=== PATIENT | female | born 1975 | race Caucasian/White ===

== ENCOUNTER 2018-01-02 19:41 | Emergency (ER) | payer BC ==
[~2018-01-02] VITALS: Ht 157.5 cm; Wt 68.0 kg
[2018-01-02 20:08] VITALS: BP_SYST 153
[2018-01-02] MEDS ORDERED: LIDOCAINE 1%, 20 ML MDV 20 ML ONE (21:15)
[2018-01-02] MEDS ORDERED: DIPH-TET-PERTUS Vaccine 0.5 ML VIAL (ADACEL) I.M. ONE (21:30)
[2018-01-02] MEDS ORDERED: LIDOCAINE 1% 10 MG/ML, 20 ML MDV INJ ONE (21:30)
[2018-01-02] MEDS ORDERED: BACITRACIN 1 GM OINT TP ONE (21:34)
[2018-01-02 21:57] VITALS: BP_SYST 148
== END 2018-01-02 21:57 | disposition home or self-care (01) ==
LOC: SED 19:41
DX: S61.216A Laceration without foreign body of right little finger without damage to nail, initial encounter (principal); R03.0 Elevated blood-pressure reading, without diagnosis of hypertension; W22.8XXA Striking against or struck by other objects, initial encounter; Y93.89 Activity, other specified; Y92.89 Other specified places as the place of occurrence of the external cause; Y99.8 Other external cause status
CPT/HCPCS: 12002; 90471; 90715; 99283; J2001